=== PATIENT | female | born 1980 | race Caucasian/White ===

== ENCOUNTER 2023-04-11 03:08 | Emergency (ER) | payer BC ==
[~2023-04-11] VITALS: Ht 162.6 cm; Wt 61.2 kg
--- NOTE | 2023-04-11 03:12 | NUR ---
Dr Garcias at bedside MSE in progress
[2023-04-11] MEDS ORDERED: FAMOTIDINE 20 MG TABLET ONE (03:27)
[2023-04-11] MEDS ORDERED: LORAZEPAM 0.5 MG TABLET ONE (03:27)
[2023-04-11] MEDS ORDERED: predniSONE 20 MG TABLET ONE (03:28)
[2023-04-11] MEDS ORDERED: FAMOTIDINE 20 MG TABLET PO ONE (03:30)
[2023-04-11] MEDS ORDERED: predniSONE 20 MG TABLET PO ONE (03:30)
[2023-04-11] MEDS ORDERED: LORAZEPAM 0.5 MG TABLET PO ONE (03:30)
--- NOTE | 2023-04-11 03:31 | NUR ---
Patient able to swallow medication
--- NOTE | 2023-04-11 03:48 | NUR ---
Patient's SBP in 170s. notified
--- NOTE | 2023-04-11 04:13 | NUR ---
Patient discharged to home in stable condition. Written and verbal after care instructions given. Patient verbalizes understanding of instructions. Stressed follow up or return to ER for worsening s/s. Patient is a/ox4, NAD noted.
[2023-04-11] MEDS ORDERED: PRED20TA PO (04:14)
[2023-04-11 04:21] VITALS: BP 126/78
== END 2023-04-11 04:21 | disposition home or self-care (01) ==
LOC: ER 03:14
DX: F14.10 Cocaine abuse, uncomplicated (principal); R00.0 Tachycardia, unspecified; R13.10 Dysphagia, unspecified; F17.210 Nicotine dependence, cigarettes, uncomplicated; Z88.0 Allergy status to penicillin; Z91.013 Allergy to seafood
CPT/HCPCS: 99284; J7512; A4663

== ENCOUNTER 2025-05-06 08:33 | Emergency (ER) | payer BC, OTHER ==
[~2025-05-06] VITALS: Ht 162.6 cm; Wt 61.2 kg
[~2025-05-06 08:33] MED LIST: PRED20TA PO
[2025-05-06 08:57] LABS: BASOPHILS # (AUTO) 0.1 K/UL (0.0-0.2); BASOPHILS % (AUTO) 0.7 % (0.0-2.0); EOSINOPHILS % (AUTO) 0.6 % (0.0-7.0); HEMATOCRIT 37.3 % (31.2-41.9); HEMOGLOBIN 12.9 g/dL (10.9-14.3); LYMPHOCYTES % (AUTO) 24.5 % (20.5-51.5); MEAN CORPUSCULAR HEMOGLOBIN 33.7 uug (24.7-32.8); MEAN CORPUSCULAR HGB CONC 35 g/dL (32.3-35.6); MEAN CORPUSCULAR VOLUME 97.5 fL (75.5-95.3); MONOCYTES # (AUTO) 0.4 K/uL (0.1-1.30); MONOCYTES % (AUTO) 5.3 % (0.0-11.0); NEUTROPHILS # (AUTO) 5.7 K/uL (1.8-8.9); NEUTROPHILS % (AUTO) 68.9 % (38.5-71.5); PLATELET COUNT (AUTO) 306 K/uL (179-408); RED BLOOD CELL COUNT(AUTO) 3.83 MIL/uL (3.63-4.92); RED CELL DISTRIBUTION WIDTH 12.8 % (12.3-17.7); WHITE BLOOD COUNT (AUTO) 8.3 K/uL (3.8-11.8)
[2025-05-06 09:06] LABS: CALCIUM 8.7 mg/dL (8.5-10.1); CARBON DIOXIDE 21 mmol/L (21-32); CHLORIDE 102 mmol/L (98-107); CREATININE 0.7 mg/dL (0.6-1.3); GLUCOSE 97 mg/dL (74-106); POTASSIUM 3.6 mmol/L (3.5-5.1); SODIUM SERUM 136 mmol/L (136-145); UREA NITROGEN, BLOOD 15 mg/dL (7-18)
[2025-05-06] MEDS: IV NORMAL SALINE 1000 ML BAG IV ONE (09:15)
[2025-05-06 09:16] LABS: DIFFERENTIAL COMMENT 1
[2025-05-06 09:53] VITALS: BP 125/62; O2SAT 99
== END 2025-05-06 09:41 | disposition home or self-care (01) ==
LOC: ER 08:33
DX: S00.511A Abrasion of lip, initial encounter (principal); R55 Syncope and collapse; F17.290 Nicotine dependence, other tobacco product, uncomplicated; F41.9 Anxiety disorder, unspecified; F14.10 Cocaine abuse, uncomplicated; F19.10 Other psychoactive substance abuse, uncomplicated; Z91.013 Allergy to seafood; Z79.52 Long term (current) use of systemic steroids; Z88.0 Allergy status to penicillin; Z91.018 Allergy to other foods; W18.39XA Other fall on same level, initial encounter; Y93.89 Activity, other specified; Y92.89 Other specified places as the place of occurrence of the external cause; Y99.8 Other external cause status
CPT/HCPCS: 36415; 71045; 84443; 84484; 85025; 98960; A4606; A4663; J7040

== ENCOUNTER 2025-07-30 15:36 | Emergency (ER) | payer OTHER ==
[~2025-07-30] VITALS: Ht 157.5 cm; Wt 56.7 kg
[2025-07-30 18:49] LABS: PLATELET COUNT (AUTO) 241 K/uL (179-408); RED BLOOD CELL COUNT(AUTO) 3.55 MIL/uL (3.63-4.92); RED CELL DISTRIBUTION WIDTH 12.4 % (12.3-17.7); WHITE BLOOD COUNT (AUTO) 7.6 K/uL (3.8-11.8)
[2025-07-30 18:57] LABS: *AMPHETAMINE, URINE NEGATIVE (NEGATIVE); *BARBITURATE, URINE NEGATIVE (NEGATIVE); *BENZODIAZEPINE, URINE POSITIVE (NEGATIVE); *CANNABINOID, URINE POSITIVE (NEGATIVE); *COCCAINE, URINE POSITIVE (NEGATIVE); *OPIATE, URINE NEGATIVE (NEGATIVE); *PHENCYCLIDINE SCREEN,URINE NEGATIVE (NEGATIVE); FENTANYL, URINE NEGATIVE (NEGATIVE)
[2025-07-30 18:59] LABS: CREATININE 0.8 mg/dL (0.6-1.3); SODIUM SERUM 138.0 mmol/L (136-145); UREA NITROGEN, BLOOD 16.0 mg/dL (7-18)
[2025-07-30 19:00] LABS: ETHANOL < 3 MG/DL (0-10)
[2025-07-30 19:04] LABS: ASPARTATE AMINOTRANSFERASE 26.0 U/L (15-37); TOTAL PROTEIN, SERUM 6.5 g/dL (6.4-8.2)
[2025-07-30] MEDS: IV NORMAL SALINE 1000 ML BAG IV ONE (19:30)
[2025-07-30 19:45] VITALS: BP 140/80
[2025-07-30 19:48] LABS: *URINE HCG, QUAL NEGATIVE (NEGATIVE)
[2025-07-30] MEDS ORDERED: LEVE500T9 PO (19:53)
[2025-07-30 22:33] VITALS: BP 138/78; O2SAT 99
== END 2025-07-30 21:00 | disposition home or self-care (01) ==
LOC: ER 15:36
DX: S00.83XA Contusion of other part of head, initial encounter (principal); R56.9 Unspecified convulsions; F12.90 Cannabis use, unspecified, uncomplicated; F14.10 Cocaine abuse, uncomplicated; F17.290 Nicotine dependence, other tobacco product, uncomplicated; F41.9 Anxiety disorder, unspecified; Z79.52 Long term (current) use of systemic steroids; Z79.899 Other long term (current) drug therapy; Z88.0 Allergy status to penicillin; Z91.013 Allergy to seafood; X58.XXXA Exposure to other specified factors, initial encounter; Y93.89 Activity, other specified; Y92.89 Other specified places as the place of occurrence of the external cause; Y99.8 Other external cause status
CPT/HCPCS: 80076; 80048; 84703; 85025; 36415; 70450; 93005; 99285; 96365; 80320; 80307; J1953 ×2; J7040; A4606; A4663; G0480